=== PATIENT | female | born 1965 | race Caucasian/White ===

== ENCOUNTER 2025-03-12 09:32 | Outpatient (CLI) | payer OTHER, SELFPAY ==
--- NOTE | ~2025-03-12 | MR_ITS ---
EXAMINATION: MR knee LT wo con DATE: 03/12/2025 10:21 INDICATION: Left knee pain and difficulty with weightbearing post twisting injury TECHNIQUE: Magnetic resonance imaging (MRI) of the left knee was performed without intravenous contrast. Sequences included coronal PD-weighted FSE, coronal PD-weighted FS FSE, sagittal T2-weighted FSE, sagittal PD-weighted FS FSE and axial PD weighted fat saturated FSE. COMPARISON: None. FINDINGS: Medial compartment: Medial meniscus is normal. Articular cartilage is normal. Lateral compartment: Lateral meniscus is normal. Articular cartilage is normal. Patellofemoral compartment: There is some partial-thickness chondral fissuring at the patellar apical ridge and medial facet without degenerative subchondral changes. Trochlear cartilage appears relatively preserved however assessment is limited by some motion artifact on the sagittal images. Ligaments and tendons: Anterior and posterior cruciate ligaments are normal. The medial collateral ligament and fibular collateral ligament complex are normal. The extensor mechanism is normal. The visualized medial and lateral hamstring tendons as well as the iliotibial band are normal. Fluid: Physiologic amount of fluid in the joint space. No loose osteochondral bodies identified. Osseous/other: There is prominent marrow edema at the lateral tibial plateau centered around a small linear low signal intensity fracture line extending caudally from the articular cortex at the lateral aspect lateral tibial plateau. No evident cortical discontinuity. No other fractures identified. There is a large o steochondroma extending posteriorly from the posterior metaphyseal region of the lateral femoral condyle with cortical and medullary continuity. The osteochondroma measures 4.1 cm left to right, 3.7 cm craniocaudally and 3.3 cm AP. Thin peripheral rim of increased T2 signal corresponding to the cartilage cap without regions of concerning thickening of the cartilage cap. There is an ovoid sclerotic bone island in the distal femur near the base of the osteochondroma. No other pathologic marrow replacing process. IMPRESSION: 1. Prominent marrow edema at the lateral femoral condyle centered around a nondisplaced likely incomplete fracture extending inferiorly from the lateral aspect of the intact appearing articular cortex. 2. Normal menisci and stabilizing ligaments. 3. 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 4. Large osteochondroma arising from the posterior metaphysis of the lateral femoral condyle. Recommend correlation with plain radiographs. Reviewed, dictated and finalized at location A. [facility] IMPRESSION: 1. Prominent marrow edema at the lateral femoral condyle centered around a nond isplaced likely incomplete fracture extending inferiorly from the lateral aspec t of the intact appearing articular cortex. 2. Normal menisci and stabilizing ligaments. 3. Mild patellofemoral osteoarthritis with moderate grade patellar chondromalac ia. 4. Large osteochondroma arising from the posterior metaphysis of the lateral fe moral condyle. Recommend correlation with plain radiographs.
== END 2025-03-12 09:33 | disposition home or self-care (01) ==
LOC: CHSIMG 09:35
PROVIDERS: PCP Family Medicine; Visit Provider Registered Nurse
DX: S86.912A Strain of unspecified muscle(s) and tendon(s) at lower leg level, left leg, initial encounter (principal); S72.425A Nondisplaced fracture of lateral condyle of left femur, initial encounter for closed fracture; M17.12 Unilateral primary osteoarthritis, left knee; M22.42 Chondromalacia patellae, left knee; D16.22 Benign neoplasm of long bones of left lower limb
CPT/HCPCS: 73721